=== PATIENT | female | born 1940 | race Hispanic/Latino ===

== ENCOUNTER 2021-05-14 07:03 | Inpatient (IN) | payer OTHER ==
[~2021-05-14] VITALS: Ht 152.4 cm; Wt 81.6 kg
[2021-05-14] MEDS ORDERED: LACTULOSE 20 GM/30 ML UDCUP PO SCH (07:30)
[2021-05-14 07:54] LABS: BASOPHILS % (AUTO) 1.1 % (0.0-5.0); EOSINOPHILS % (AUTO) 0.7 % (0.0-8.0); HEMATOCRIT 33.9 % (36-48); LYMPHOCYTES % (AUTO) 26.4 % (21.0-51.0); MEAN CORPUSCULAR HEMOGLOBIN 33.7 pg (27.0-33.0); MEAN CORPUSCULAR HGB CONC 34.5 g/dL (32.0-36.0); MEAN CORPUSCULAR VOLUME 97.7 fL (79-99); MONOCYTES % (AUTO) 12.6 % (3.0-13.0); NEUTROPHILS % (AUTO) 58.8 % (40.0-77.0); PLATELET COUNT (AUTO) 92 K/uL (130-400); RED BLOOD CELL COUNT(AUTO) 3.47 MIL/uL (4.00-5.50); RED CELL DISTRIBUTION WIDTH 15.6 % (11.0-15.5); WHITE BLOOD COUNT (AUTO) 5.5 K/uL (4.8-10.8)
[2021-05-14 09:08] LABS: ALBUMIN 2.4 g/dL (3.5-5.0); BILIRUBIN,TOTAL 1.6 mg/dL (0.2-1.0); CREATININE 1.8 mg/dL (0.5-1.5); POTASSIUM 4.7 mmol/L (3.5-5.1); TOTAL PROTEIN, SERUM 7.9 g/dL (6.0-8.3)
[2021-05-14 09:32] LABS: APPEARANCE,URINE Clear (CLEAR); BILIRUBIN,URINE Negative (NEGATIVE); COLOR,URINE Yellow (YELLOW); GLUCOSE, URINE (UA) Negative (NEGATIVE); KETONES,URINE Negative (NEGATIVE); LEUKOCYTE ESTERASE ,URINE Small (NEGATIVE); NITRATE,URINE Negative (NEGATIVE); OCCULT BLOOD,URINE Negative (NEGATIVE); PROTEIN,URINE Negative (NEGATIVE)
[2021-05-14 09:40] LABS: AMPHET/METH SCREEN,URINE NEGATIVE (NEGATIVE); BARBITURATE SCREEN, URINE NEGATIVE (NEGATIVE); BENZODIAZEPINES SCREEN,URINE NEGATIVE (NEGATIVE); CANNABINOID SCREEN,URINE NEGATIVE (NEGATIVE); COCAINE SCREEN,URINE NEGATIVE (NEGATIVE); OPIATE SCREEN,URINE NEGATIVE (NEGATIVE); PHENCYCLIDINE SCREEN,URINE NEGATIVE (NEGATIVE)
[2021-05-14 09:44] LABS: BACTERIA,URINE Many /HPF (None Seen); RBC,URINE 0-1 /HPF (0-1); SQUAMOUS EPITHELIAL CELL,UR Rare /HPF (0-2)
[2021-05-14] MEDS ORDERED: MECLIZINE HCL 25 MG TABLET PO PRN (11:00)
[2021-05-14] MEDS ORDERED: LACTULOSE 20 GM/30 ML UDCUP PO PRN (11:00)
[2021-05-14] MEDS ORDERED: RIFAXIMIN 200 MG TABLET PO SCH (12:00)
[2021-05-14] MEDS: CEFTRIAXONE 1G VIAL IV SCH (12:00)
[2021-05-14] MEDS ORDERED: METOPROLOL TARTRATE 25 MG TAB PO SCH (12:00)
[2021-05-14] MEDS ORDERED: ONDANSETRON 4MG INJ IV PRN (12:00)
[2021-05-14] MEDS: LACTULOSE 20 GM/30 ML UDCUP PO SCH ×2 (13:30→21:15)
[2021-05-14] MEDS ORDERED: MECL-160 PO (17:35)
[2021-05-14] MEDS ORDERED: LEVO50CA4 PO (17:35)
[2021-05-14] MEDS ORDERED: LACT10SO62 PO (17:35)
[2021-05-14] MEDS ORDERED: SPIR100T PO (17:35)
[2021-05-14 20:00] VITALS: BP 161/92
[2021-05-14] MEDS: METOPROLOL TARTRATE 25 MG TAB PO SCH (21:14)
[2021-05-14] MEDS: RIFAXIMIN 550 MG TABLET PO SCH (21:15)
[2021-05-14] MEDS: FAMOTIDINE 20MG TAB PO SCH (21:15)
[2021-05-14 23:38] VITALS: BP 102/57
[2021-05-15] MEDS: LACTULOSE 20 GM/30 ML UDCUP PO SCH ×4 (02:26→21:19)
[2021-05-15 04:00] VITALS: BP 148/60
[2021-05-15] MEDS: LEVOTHYROXINE 50 MCG TABLET PO SCH (06:10)
[2021-05-15 06:12] LABS: BASOPHILS % (AUTO) 0.7 % (0.0-5.0); EOSINOPHILS % (AUTO) 0.3 % (0.0-8.0); HEMATOCRIT 33.8 % (36-48); LYMPHOCYTES % (AUTO) 18.9 % (21.0-51.0); MEAN CORPUSCULAR HEMOGLOBIN 33.7 pg (27.0-33.0); MEAN CORPUSCULAR HGB CONC 34.6 g/dL (32.0-36.0); MEAN CORPUSCULAR VOLUME 97.4 fL (79-99); MONOCYTES % (AUTO) 9.9 % (3.0-13.0); PLATELET COUNT (AUTO) 101 K/uL (130-400); RED BLOOD CELL COUNT(AUTO) 3.47 MIL/uL (4.00-5.50); RED CELL DISTRIBUTION WIDTH 15.6 % (11.0-15.5); WHITE BLOOD COUNT (AUTO) 8.9 K/uL (4.8-10.8)
[2021-05-15 06:26] LABS: ALBUMIN 2.2 g/dL (3.5-5.0); BILIRUBIN,TOTAL 2.2 mg/dL (0.2-1.0); CREATININE 1.7 mg/dL (0.5-1.5); POTASSIUM 5.3 mmol/L (3.5-5.1); TOTAL PROTEIN, SERUM 7.6 g/dL (6.0-8.3)
[2021-05-15 08:00] VITALS: BP 145/69
[2021-05-15] MEDS ORDERED: ENOXAPARIN SODIUM 30 MG/0.3 ML SQ SCH (09:00)
[2021-05-15] MEDS: FAMOTIDINE 20MG TAB PO SCH ×2 (09:10→21:19)
[2021-05-15] MEDS: SPIRONOLACTONE 25 MG TAB PO SCH (09:10)
[2021-05-15] MEDS: METOPROLOL TARTRATE 25 MG TAB PO SCH ×2 (09:10→21:19)
[2021-05-15] MEDS: RIFAXIMIN 550 MG TABLET PO SCH ×2 (09:10→21:19)
[2021-05-15] MEDS: NEOMYCIN SULFATE 500 MG TAB PO SCH ×3 (11:19→21:19)
[2021-05-15 12:00] VITALS: BP 135/63
[2021-05-15] MEDS: CEFTRIAXONE 1G VIAL IV SCH (12:33)
[2021-05-15 20:00] VITALS: BP 143/51
[2021-05-15 23:46] VITALS: BP 119/58
[2021-05-16] MEDS: LACTULOSE 20 GM/30 ML UDCUP PO SCH ×4 (01:30→21:25)
[2021-05-16 03:00] VITALS: BP 130/70
[2021-05-16 05:00] LABS: BASOPHILS % (AUTO) 0.6 % (0.0-5.0); EOSINOPHILS % (AUTO) 0.6 % (0.0-8.0); HEMATOCRIT 33.5 % (36-48); LYMPHOCYTES % (AUTO) 22.8 % (21.0-51.0); MEAN CORPUSCULAR HEMOGLOBIN 33.9 pg (27.0-33.0); MEAN CORPUSCULAR HGB CONC 33.4 g/dL (32.0-36.0); MEAN CORPUSCULAR VOLUME 101.5 fL (79-99); MONOCYTES % (AUTO) 11.9 % (3.0-13.0); NEUTROPHILS % (AUTO) 63.8 % (40.0-77.0); PLATELET COUNT (AUTO) 95 K/uL (130-400); RED CELL DISTRIBUTION WIDTH 15.9 % (11.0-15.5); WHITE BLOOD COUNT (AUTO) 12.7 K/uL (4.8-10.8)
[2021-05-16 05:21] LABS: ALBUMIN 2.1 g/dL (3.5-5.0); BILIRUBIN,TOTAL 1.8 mg/dL (0.2-1.0); POTASSIUM 4.7 mmol/L (3.5-5.1); TOTAL PROTEIN, SERUM 7.3 g/dL (6.0-8.3)
[2021-05-16] MEDS: LEVOTHYROXINE 50 MCG TABLET PO SCH (06:37)
[2021-05-16 08:00] VITALS: BP 141/56
[2021-05-16] MEDS: RIFAXIMIN 550 MG TABLET PO SCH ×2 (09:42→21:25)
[2021-05-16] MEDS: METOPROLOL TARTRATE 25 MG TAB PO SCH ×2 (09:42→21:00)
[2021-05-16] MEDS: NEOMYCIN SULFATE 500 MG TAB PO SCH ×3 (09:42→21:25)
[2021-05-16] MEDS: FAMOTIDINE 20MG TAB PO SCH ×2 (09:42→21:25)
[2021-05-16] MEDS: SPIRONOLACTONE 25 MG TAB PO SCH (09:43)
[2021-05-16 12:00] VITALS: BP 127/63
[2021-05-16] MEDS: CEFTRIAXONE 1G VIAL IV SCH (12:24)
[2021-05-16 15:27] VITALS: BP 112/66
[2021-05-16 19:15] VITALS: BP 136/45
[2021-05-16 23:12] VITALS: BP 137/45
[2021-05-17] MEDS: LACTULOSE 20 GM/30 ML UDCUP PO SCH ×3 (01:30→15:04)
[2021-05-17 04:19] VITALS: BP 159/57
[2021-05-17 05:02] LABS: BASOPHILS % (AUTO) 0.8 % (0.0-5.0); EOSINOPHILS % (AUTO) 3.1 % (0.0-8.0); HEMATOCRIT 32.2 % (36-48); LYMPHOCYTES % (AUTO) 24.8 % (21.0-51.0); MEAN CORPUSCULAR HEMOGLOBIN 33.2 pg (27.0-33.0); MEAN CORPUSCULAR HGB CONC 33.5 g/dL (32.0-36.0); MEAN CORPUSCULAR VOLUME 99.1 fL (79-99); MONOCYTES % (AUTO) 11.8 % (3.0-13.0); NEUTROPHILS % (AUTO) 58.7 % (40.0-77.0); PLATELET COUNT (AUTO) 87 K/uL (130-400); RED BLOOD CELL COUNT(AUTO) 3.25 MIL/uL (4.00-5.50); RED CELL DISTRIBUTION WIDTH 15.4 % (11.0-15.5); WHITE BLOOD COUNT (AUTO) 11.2 K/uL (4.8-10.8)
[2021-05-17 05:19] LABS: BILIRUBIN,TOTAL 1.5 mg/dL (0.2-1.0); CREATININE 1.9 mg/dL (0.5-1.5); POTASSIUM 4.6 mmol/L (3.5-5.1); TOTAL PROTEIN, SERUM 6.8 g/dL (6.0-8.3)
[2021-05-17] MEDS: LEVOTHYROXINE 50 MCG TABLET PO SCH (06:30)
[2021-05-17 08:00] VITALS: BP 152/59
[2021-05-17] MEDS ORDERED: RIFA550T PO (08:55)
[2021-05-17] MEDS ORDERED: MECL-160 PO (08:55)
[2021-05-17] MEDS ORDERED: LACT PO (08:55)
[2021-05-17] MEDS ORDERED: SPIR25TA6 PO (08:55)
[2021-05-17] MEDS ORDERED: METO25 PO (08:55)
[2021-05-17] MEDS: SPIRONOLACTONE 25 MG TAB PO SCH (11:08)
[2021-05-17] MEDS: FAMOTIDINE 20MG TAB PO SCH (11:08)
[2021-05-17] MEDS: NEOMYCIN SULFATE 500 MG TAB PO SCH ×2 (11:08→15:03)
[2021-05-17] MEDS: METOPROLOL TARTRATE 25 MG TAB PO SCH (11:08)
[2021-05-17] MEDS: RIFAXIMIN 550 MG TABLET PO SCH (11:08)
[2021-05-17 11:44] VITALS: BP 124/67
[2021-05-17] MEDS: CEFTRIAXONE 1G VIAL IV SCH (14:58)
[2021-05-17 16:00] VITALS: BP 129/78
== END 2021-05-17 20:10 | disposition home or self-care (01) | DRG 443 ==
LOC: EDH 07:03 → EDHIP 11:47 → 3AH 17:25
PROVIDERS: ADMIT Hospitalist; ATTEND Hospitalist
DX: K72.90 Hepatic failure, unspecified without coma (principal); K74.60 Unspecified cirrhosis of liver; D64.9 Anemia, unspecified; K59.00 Constipation, unspecified; Z98.42 Cataract extraction status, left eye; Z98.41 Cataract extraction status, right eye; Z91.19 Patient's noncompliance with other medical treatment and regimen
CPT/HCPCS: 36415; 80053; 80305; 81001; 82140; 83690; 84145; 85025; 87077; 87088; 87186; G0378; J0696